=== PATIENT | male | born 1960 | race Caucasian/White ===

== ENCOUNTER 2018-07-17 00:44 | Observation (INO) | payer OTHER ==
--- NOTE | 2018-07-17 02:48 | ER ---
HPI: A 58-year-old male who comes in by ambulance after falling and hitting his head. He is here on a fishing trip with some friends. [place]. When walking into the cabin they were staying in, the patient tripped. The patient admits to drinking alcohol this evening for sometime. His entire group had been drinking alcoholic beverages. The patient states he feels okay. He is denying any pain upon arrival. EMS crew states that the patient's O2 sats were in the upper 80s, and he was awake and talkative when they arrived on the scene. The patient tells me he is on some medications. He does not know the names of them and does not have his medications with him. He admits that he is taking Coumadin, but he is not sure why. OBJECTIVE: GENERAL APPEARANCE: The patient is awake and alert, in no respiratory distress. He has an obvious abrasion injury to the left side of his forehead and some dried blood around the opening of the right naris without any active bleeding. VITAL SIGNS: Reviewed. Blood pressure of 158/93, O2 sats are 89% on room air. HEENT: Eyes: Pupils equal, round, and reactive to light. EOMs are roughly intact. The patient is obviously intoxicated. The patient has no pain with palpation of his neck or chest wall. Ears: TMs are normal in appearance. Oral mucous membranes are somewhat dry in nature. There is no sign of dental or oral injury. LUNGS: Clear. CARDIAC: Heart sounds distinct without murmurs. ABDOMEN: Protuberant, nontender to palpation. The patient has a midline well-healed scar. LAB AND X-RAY: Labs include a CBC showing a white count of 11.1, hemoglobin is good at 15.2. Comprehensive metabolic panel shows his electrolytes are good. Kidney function is also good. Liver enzymes are normal. ETOH is 376. Head CT was also performed showing a left periorbital, supraorbital, and frontal scalp hematoma as well as a punctate hyperdensity in the left paramedian inferior cerebellar hemisphere measuring 6 mm, most likely representing calcification and less likely acute hemorrhage. A repeat CT is recommended if clinically indicated or comparison with prior studies. Throughout the stay in our ER, the patient has been awake, he answers appropriately. He is alert to person and place. He is unsure of the exact time. He has been able to get off the table a couple of times, and he went and picked up his jacket on one occasion and was actually quite steady on his feet. DIAGNOSIS: Head injury with a large hematoma plus another hyperdensity thought to be calcification. TREATMENT PLAN: We will admit the patient for observation overnight and re-evaluate him in the morning. We most likely will repeat a CBC. I will get a PT/INR on the patient and repeat a head CT in the morning. CRS/MODL /[id number]
--- NOTE | 2018-07-17 03:00 | HP ---
HISTORY OF PRESENT ILLNESS: He is admitted through the emergency room after falling and sustaining a hematoma to the left periorbital, supraorbital, and frontal scalp area with a superficial abrasion in this area as well. He also had some bleeding from the right naris, which had stopped before arriving at the emergency room. The CT also shows a punctate hyperdensity in the left inferior cerebellar hemisphere measuring 6 mm with recommendation to compare with prior studies or repeat the study if needed. The patient has been cooperative. His ETOH level is a 376. CBC is normal. Hemoglobin is 15.2. Comprehensive metabolic panel is unremarkable. The patient will be admitted for observation tonight, and we will re-evaluate him in the morning, most likely repeating the head CT and some lab work including a CBC as well as a PT/INR. CURRENT MEDICATIONS: Unknown. The patient states he is on Coumadin, but he is not sure why. He does not know any of his other medications. PAST MEDICAL HISTORY: The only thing known is history of an abdominal aortic aneurysm, which was surgically repaired approximately a year ago, and the patient tells me that he does have a CPAP machine for sleep apnea. TREATMENT AND PLAN: The patient will be monitored overnight as previously mentioned and re- evaluated in the morning. We will not give the patient any medication overnight except on a p.r.n. basis. CRS/MODL
--- NOTE | 2018-07-17 08:56 | CT ---
DATE OF SERVICE: 07/17/18 CLINICAL DATA: fell - head injury. UNENHANCED BRAIN CT: Multislice acquisition through the brain without IV contrast was performed. No priors. Motion artifact degrades image quality. There is a 5 mm hyperdensity in the left cerebellar hemisphere. This is most likely a calcification and may be related to prior infection. There are periventricular lucencies bilaterally consistent with small vessel ischemic change. No masses or mass effect. No evidence of acute or subacute infarct. There is soft tissue swelling with a cephalohematoma of the scalp in the left frontal region. No underlying fractures. There is minimal mucosal thickening in the ethmoid sinuses consistent with chronic sinusitis. IMPRESSION: A 5 mm hyperdense focus left cerebellar hemisphere. This probably represents a calcification. Comparison with prior exam may be helpful. Other findings as discussed above. [id number] [facility]
[2018-07-17 09:06] VITALS: BP 153/82
--- NOTE | 2018-07-17 10:21 | CT ---
DATE OF SERVICE: 07/17/18 CLINICAL DATA: head injury. UNENHANCED BRAIN CT: Multislice acquisition through the brain without IV contrast was performed. Comparison is made to a prior exam from earlier on the same date. Again noted is the 5 mm calcification in the left cerebellar hemisphere. There are periventricular lucencies bilaterally consistent with small vessel ischemic change. No masses. No intracranial hemorrhage. No evidence of acute or subacute infarct. There is persistent soft tissue swelling with a cephalohematoma adjacent to the left frontal bone. No underlying fracture. There is persistent mucosal thickening in the ethmoid and sphenoid sinuses consistent with chronic sinusitis. IMPRESSION: No acute intracranial abnormalities. [id number] [facility]
--- NOTE | 2018-07-17 21:05 | DISCH ---
HPI: A 58-year-old male who was admitted for observation last night after falling while intoxicated [place]. He sustained a fairly large hematoma involving the left side of his forehead and around the eye. The patient told me he was on Coumadin. He has done well overnight. Nursing staff stated he did not have any complaints and he is fairly easily arousable. This morning, the patient is talkative. He is up and moving around. He is walking with a smooth gait and tells me that he has some achiness and discomfort from the injuries, but nothing significant. Head CT done last night had some abnormal findings with some suggestion of having a repeat test or comparing the test to a previous CT scan, which we do not have. Therefore, a repeat CT of the head was done this morning and it is negative for any acute intracranial pathology. At this point, the patient will be discharged. He has a friend coming to get him. Activity should be light duty as tolerated today. He is to take Tylenol as needed for headaches and follow up is p.r.n. The patient has no further questions. STERLING/MODL /[id number]
== END 2018-07-17 10:25 | disposition home or self-care (01) ==
LOC: EDBD → LB.ED 00:44 → LB.MS 01:37 → UNDOADMOB 01:40 → LB.MS 01:40
PROVIDERS: ADMIT Physician Assistant; ATTEND Physician Assistant
DX: S00.83XA Contusion of other part of head, initial encounter (principal); S00.12XA Contusion of left eyelid and periocular area, initial encounter; W01.0XXA Fall on same level from slipping, tripping and stumbling without subsequent striking against object, initial encounter; Y93.01 Activity, walking, marching and hiking; Z79.01 Long term (current) use of anticoagulants
CPT/HCPCS: 36415; 70450; 80053; 85025; 85610; 99285-25; A0425; A0429; G0378; G0480